=== PATIENT | female | born 1975 | race Caucasian/White ===

== ENCOUNTER 2021-06-19 18:58 | Outpatient (CLI) | payer BC | END 2021-06-19 18:59 | disposition home or self-care (01) | LOC: COV 18:58 | PROVIDERS: ATTEND Family Medicine | DX: R50.9 Fever, unspecified (principal); R05 Cough; M79.10 Myalgia, unspecified site; R07.0 Pain in throat; Z20.822 Contact with and (suspected) exposure to COVID-19 ==

== ENCOUNTER 2021-06-28 08:16 | Outpatient (CLI) | payer BC ==
--- NOTE | 2021-06-28 08:36 | XRAY Report ---
PROCEDURE: Chest 2 View X-Ray INDICATIONS: SOB TECHNIQUE: 2 view(s) of the chest. COMPARISON: None. FINDINGS: Surgical changes and devices: None. Lungs and pleura: No pleural effusions or pneumothorax. Lungs are clear. Mediastinum: Mediastinal contours are normal. Heart size is normal. Bones and chest wall: No suspicious bony abnormalities. Soft tissues appear unremarkable. IMPRESSION: No acute cardiopulmonary pathology. Reviewed by: Aron Hansen MD on 06/28/2021 8:35 AM PDT Approved by: Aron Hansen MD on 06/28/2021 8:35 AM PDT Station ID: [id number]
[2021-06-28 14:54] LABS: BASOPHILS # (AUTO) 0.1 10^3/uL (0.0-0.1); BASOPHILS % (AUTO) 1.3 %; EOSINOPHILS # (AUTO) 0.2 10^3/uL (0.0-0.7); EOSINOPHILS % (AUTO) 4.4 %; HCT - HEMATOCRIT 41.4 % (37.0-47.0); LYMPHOCYTES # (AUTO) 1.4 10^3/uL (1.5-3.5); MEAN CORPUSCULAR HEMOGLOBIN 34.4 pg (27.0-31.0); MEAN CORPUSCULAR HGB CONC 33.8 g/dL (32.0-36.0); MEAN CORPUSCULAR VOLUME 101.7 fL (81.0-99.0); MEAN PLATELET VOLUME 10.2 fL (7.9-10.8); MONOCYTES # (AUTO) 0.5 10^3/uL (0.0-1.0); MONOCYTES % (AUTO) 11.8 %; NEUTROPHILS # (AUTO) 2.4 10^3/uL (1.5-6.6); NEUTROPHILS % (AUTO) 52.3 %; PLT - PLATELET COUNT 262 10^3/uL (130-450); RED BLOOD COUNT 4.07 10^6/uL (4.20-5.40); RED CELL DISTRIBUTION WIDTH 12.2 % (12.0-15.0); WHITE BLOOD COUNT 4.6 x10^3/uL (4.8-10.8)
[2021-06-28 15:16] LABS: ALBUMIN 4.5 g/dL (3.2-5.5); ALBUMIN/GLOBULIN RATIO 1.4 (1.0-2.2); BILIRUBIN,TOTAL 1.2 mg/dL (0.2-1.0); CALCIUM 9.1 mg/dL (8.5-10.3); CREATININE 0.7 mg/dL (0.4-1.0); CRP - C-REACTIVE PROTEIN 2.8 mg/dL (0-1.0); MAGNESIUM 2.1 mg/dL (1.7-2.8); TOTAL PROTEIN 7.7 g/dL (6.7-8.2)
[2021-06-28 15:25] LABS: THYROID STIMULATING HORMONE 2.41 uIU/mL (0.34-5.60)
== END 2021-06-28 23:59 | disposition home or self-care (01) ==
LOC: DI.S 08:16
PROVIDERS: ATTEND Physician Assistant Medical
DX: R06.02 Shortness of breath (principal); T50.B95A Adverse effect of other viral vaccines, initial encounter; R00.2 Palpitations
CPT/HCPCS: 36415; 80053; 83735; 84443; 85025; 86140

== ENCOUNTER 2021-10-24 03:14 | Emergency (ER) | payer BC ==
[2021-10-24] MEDS ORDERED: ONDANSETRON 4 MG/2 ML VIAL IVP STA (03:43)
[2021-10-24] MEDS ORDERED: MORPHINE 10 MG/ML VIAL IVP STA (03:43)
[2021-10-24] MEDS ORDERED: SODIUM CHLORIDE 0.9% 1,000 ML IV STA (03:43)
--- NOTE | 2021-10-24 03:48 | ED Physician Documentation ---
History of Present Illness - Stated complaint Stated Complaint: R SIDE PX - Chief complaint Chief Complaint: Abd Pain - History obtained from History obtained from: Patient - Additonal information Additional information: 46yF with no pertinent pmh, PSH hysterectomy and R oopherectomy for pain/AUB, p/w sudden onset severe pain waking her from sleep just FIRESETTER, waxing and waning, intermittent, a/w nausea but no vomiting. patient states she had a couple of alcoholic drinks last night for her birthday and went to sleep feeling normal, then woke with pain. sharp, nonradiating, RLQ pain, worse with movement. has not tried urinating yet. denies vaginal bleeding, vomit, diarrhea, fever. Review of Systems Ten Systems: 10 systems reviewed and negative Constitutional: denies: Fever, Chills Respiratory: denies: Dyspnea GI: reports: Abdominal Swelling, Nausea. 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 DESK MANAGER: Tubal ligation, Hysterectomy, Oophrectomy - Present Medications Home Medications: Ambulatory Orders Medication Instructions Recorded Confirmed Nitrofurantoin [Macrobid] 100 mg PO BID #10 tab 10/24/21 Sennosides/Docusate Sodium 1 each PO QDAC PRN #30 tablet 10/24/21 [Senna-Docusate Sodium Tablet] Venlafaxine HCl [Effexor Xr] 150 mg PO DAILY 10/24/21 10/24/21 hydrOXYzine HCL [Hydroxyzine HCl] 25 mg PO Q8HR PRN 10/24/21 10/24/21 polyethylene glycoL 3350 [Miralax] 17 gm PO DAILY PRN #30 packet 10/24/21 - Allergies Allergies/Adverse Reactions: Allergies Allergy/AdvReac Type Severity Reaction Status Date / Time No Known Drug Allergies Allergy Verified 10/24/21 03:28 - Social History Does the pt smoke?: No Smoking Status: Never smoker Does the pt drink ETOH?: Yes ETOH Use: Beer Does the pt have substance abuse?: No - Immunizations Immunizations are current?: Yes PD ED PE NORMAL - Vitals Vital signs reviewed: Yes - General General: Alert and oriented X 3, Well developed/nourished, Other (moderate distress, curled up in bed on right side, in apparent pain) - HEENT HEENT: Atraumatic, PERRL, EOMI - Neck Neck: Supple, no meningeal sign - Cardiac Cardiac: Other (tachycardic rate, regular rhythm) - Respiratory Respiratory: No respiratory distress, Clear bilaterally - Abdomen Abdomen: Other (RLQ and suprapubic region ttp) - Back Back: No CVA TTP - Derm Derm: Normal color, Warm and dry - Extremities Extremities: No deformity - Neuro Neuro: Alert and oriented X 3 - Psych Psych: Normal mood, Normal affect Results - Vitals Vitals: Vital Signs - 24 hr 10/24/21 10/24/21 10/24/21 03:26 04:07 05:18 Temperature 35.9 C L 36.3 C L Heart Rate 110 H 88 85 Respiratory 22 19 18 Rate Blood Pressure 147/102 H 111/68 117/76 O2 Saturation 97 96 95 Oxygen O2 Source Room air - Labs Labs: Laboratory Tests 10/24/21 10/24/21 10/24/21 03:31 03:31 03:56 WBC 5.6 RBC 4.24 Hgb 14.8 Hct 41.4 MCV 97.6 MCH 34.9 H MCHC 35.7 RDW 11.9 L Plt Count 285 MPV 10.0 Neut # (Auto) 2.5 Lymph # (Auto) 2.5 Collin # (Auto) 0.4 Eos # (Auto) 0.1 Baso # (Auto) 0.1 Absolute Nucleated RBC 0.00 Nucleated RBC % 0.0 Sodium 141 Potassium 4.0 Chloride 103 Carbon Dioxide 23 Anion Gap 15.0 H BUN 16 Creatinine 0.7 Estimated GFR (MDRD) 90 Glucose 113 H Calcium 9.2 Total Bilirubin 0.4 AST 24 ALT 24 Alkaline Phosphatase 84 Total Protein 7.9 Albumin 4.5 Globulin 3.4 Albumin/Globulin Ratio 1.3 Lipase 56 H Urine Color YELLOW Urine Clarity CLEAR Urine pH 5.0 Ur Specific Bryan 1.025 Urine Protein NEGATIVE Urine Glucose (UA) NEGATIVE Urine Ketones 15 H Urine Occult Blood NEGATIVE Urine Nitrite NEGATIVE Urine Bilirubin NEGATIVE Urine Urobilinogen 0.2 (NORMAL) Ur Leukocyte Esterase TRACE H Urine RBC 0-5 Urine WBC 0-3 Ur Squamous Epith Cells FEW Squamous Urine Bacteria Rare Ur Microscopic Review INDICATED Urine Culture Comments INDICATED PD MEDICAL DECISION MAKING - ED course ED course: 46yF p/w RLQ pain concerning for kidney stone versus appendicitis versus ovarian torsion vs UTI. Torsion less likely given R oopherectomy however she could have L ovary migrating over to the right. will obtain CT imaging, treat symptomatically and reevaluate. Patient feeling much better now, pain has subsided and nausea resolved. d/w her that she is severely constipated. patient had small hard BM yesterday. will place on stool regimen. also with possible uti on u/a. discussed strict return precautions. plan to f/u with pmd. Departure - Departure Disposition: Home, Self Care Clinical Impression: Constipation, Nausea, UTI (urinary tract infection) Condition: Good Instructions: ED UTI Cystitis Female, ED Constipation Prescriptions: Nitrofurantoin [Macrobid] 100 mg PO BID #10 tab polyethylene glycoL 3350 [Miralax] 17 gm PO DAILY PRN #30 packet PRN Reason: Constipation Sennosides/Docusate Sodium [Senna-Docusate Sodium Tablet] 1 each PO QDAC PRN #30 tablet PRN Reason: Constipation Comments: You were seen in the emergency department for abdominal pain which appears to be due to constipation. It could also be related to UTI, since your urine had some white blood cells in it. We will treat with a mild antibiotic for now and will call you if it needs adjusting. Please follow up with your primary doctor in regards to your constipation. return to the ed for any new or worsening symptoms or other concerns.
[2021-10-24 03:51] LABS: BASOPHILS # (AUTO) 0.1 10^3/uL (0.0-0.1); BASOPHILS % (AUTO) 1.1 %; EOSINOPHILS # (AUTO) 0.1 10^3/uL (0.0-0.7); EOSINOPHILS % (AUTO) 2.3 %; HCT - HEMATOCRIT 41.4 % (37.0-47.0); HGB - HEMOGLOBIN 14.8 g/dL (12.0-16.0); LYMPHOCYTES # (AUTO) 2.5 10^3/uL (1.5-3.5); LYMPHOCYTES % (AUTO) 45.1 %; MEAN CORPUSCULAR HEMOGLOBIN 34.9 pg (27.0-31.0); MEAN CORPUSCULAR HGB CONC 35.7 g/dL (32.0-36.0); MEAN CORPUSCULAR VOLUME 97.6 fL (81.0-99.0); MONOCYTES # (AUTO) 0.4 10^3/uL (0.0-1.0); MONOCYTES % (AUTO) 7.5 %; NEUTROPHILS # (AUTO) 2.5 10^3/uL (1.5-6.6); NEUTROPHILS % (AUTO) 43.6 %; PLT - PLATELET COUNT 285 10^3/uL (130-450); RED BLOOD COUNT 4.24 10^6/uL (4.20-5.40); RED CELL DISTRIBUTION WIDTH 11.9 % (12.0-15.0); WHITE BLOOD COUNT 5.6 x10^3/uL (4.8-10.8)
[2021-10-24 04:00] LABS: ALBUMIN 4.5 g/dL (3.2-5.5); ALBUMIN/GLOBULIN RATIO 1.3 (1.0-2.2); BILIRUBIN,TOTAL 0.4 mg/dL (0.2-1.0); CALCIUM 9.2 mg/dL (8.5-10.3); CREATININE 0.7 mg/dL (0.4-1.0); TOTAL PROTEIN 7.9 g/dL (6.7-8.2)
[2021-10-24 04:02] LABS: BILIRUBIN,URINE NEGATIVE (NEGATIVE); GLUCOSE, URINE (UA) NEGATIVE (NEGATIVE); KETONES,URINE (UA) 15 mg/dL (NEGATIVE); LEUKOCYTE ESTERASE, URINE TRACE (NEGATIVE); NITRITE,URINE NEGATIVE (NEGATIVE); OCCULT BLOOD,URINE NEGATIVE (NEGATIVE); PROTEIN,URINE NEGATIVE (NEGATIVE); UROBILINOGEN,URINE 0.2 (NORMAL) E.U./dL (NORMAL)
[2021-10-24 04:05] LABS: CLARITY,URINE CLEAR (CLEAR)
[2021-10-24 04:07] LABS: BACTERIA,URINE Rare /HPF (None Seen); RBC,URINE 0-5 /HPF (0-5); SQUAMOUS EPITHELIAL CELL,UR FEW Squamous (<= Few); WBC,URINE 0-3 /HPF (0-5)
[2021-10-24] MEDS ORDERED: IOVERSOL 320 100 ML VIAL IVP ONE ×2 (04:23→04:53)
[2021-10-24] MEDS ORDERED: MORPHINE 2 MG/ML CARPUJECT IVP STA (05:22)
[2021-10-24 06:05] VITALS: BP 121/75
--- NOTE | 2021-10-24 07:31 | CT Report ---
PROCEDURE: Abdomen/Pelvis W INDICATIONS: severe RLQ pain waking her from sleep CONTRAST: IV CONTRAST: Optiray 320 ml: 100 PO CONTRAST: *NO PO CONTRAST TECHNIQUE: After the administration of intravenous contrast, 5 mm thick sections acquired from the diaphragms to the symphysis. 5 mm thick coronal and sagittal reformats were acquired. For radiation dose reducti on, the following was used: automated exposure control, adjustment of mA and/or kV according to tayla ent size. COMPARISON: None. FINDINGS: Image quality: Excellent. ABDOMEN: Lung bases: There is mild dependent atelectasis bilaterally. Heart size is normal. Solid organs: Evaluation of the liver demonstrates no focal hepatic lesions. Gallbladder appears with in normal limits without calcified gallstones. Biliary system is non dilated. The spleen is normal i n size. Pancreas enhances normally without peripancreatic fat stranding or fluid collections. No adr enal nodules. Kidneys demonstrate no hydronephrosis. Peritoneum and bowel: Bowel loops demonstrate normal wall thickness and caliber. The appendix is no rmal in appearance. There is a moderate amount of colonic stool throughout the colon. No free fluid o r air. Nodes and vessels: No retroperitoneal or mesenteric adenopathy by size criteria. Aorta and inferior vena cava are normal in size. Miscellaneous: No ventral hernias. PELVIS: Genitourinary: Bladder wall thickness is normal. Miscellaneous: No inguinal hernias or adenopathy. Bones: No suspicious bony lesions. No vertebral body compression fractures. IMPRESSION: 1. No evidence of acute appendicitis. 2. No evidence of obstructive uropathy. 3. Moderate amount of colonic stool throughout the colon may reflect constipation. No bowel obstructi on. Reviewed by: Otis Husain MD on 10/24/2021 7:29 AM PST Approved by: Otis Husain MD on 10/24/2021 7:29 AM PST Station ID: [id number]
== END 2021-10-24 06:15 | disposition home or self-care (01) ==
LOC: ED 03:14
DX: K59.00 Constipation, unspecified (principal); N39.0 Urinary tract infection, site not specified
CPT/HCPCS: 36415; 74177; 80053; 81001; 83690; 85025; 87086; 96374; 96375; 96376; 99284; Q9967; 81003

== ENCOUNTER 2022-02-12 10:23 | Outpatient (CLI) | payer BC | END 2022-02-12 10:24 | disposition EMS.NT | LOC: EMS 10:23 | DX: R05.9 Cough, unspecified (principal); J02.9 Acute pharyngitis, unspecified; R13.10 Dysphagia, unspecified ==

== ENCOUNTER 2022-02-12 11:00 | Emergency (ER) | payer BC ==
[2022-02-12] MEDS ORDERED: DEXAMETHASONE 10 MG/ML VIAL PO STA (11:41)
[2022-02-12] MEDS ORDERED: CHERRY SYRUP 10 ML UDC PO ONE (11:41)
[2022-02-12] MEDS ORDERED: IBUPROFEN 100 MG/5 ML UDC PO STA (11:41)
[2022-02-12] MEDS ORDERED: HYDROmorphone 1 MG/ML CARPUJECT IM STA (11:45)
--- NOTE | 2022-02-12 11:46 | ED Physician Documentation ---
History of Present Illness - Stated complaint Stated Complaint: SOA,TROUBLE SWALLOW,PX IN THROAT - Chief complaint Chief Complaint: Resp - Additonal information Additional information: 46-year-old female presents emergency department for evaluation of a sore throat. She reports that she began having myalgias chills sore throat 3 days ago. That evening at home she tested positive for COVID-19. She states that she cannot swallow and she does have some dysphonia. States it is difficult to breathe. She is vaccinated but not boosted for COVID-19. She did quit smoking about 5 years ago. Denies any history of heart or lung disorders however. 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 : None HEENT: None Psych: Depression, Anxiety Musculoskeletal: None Derm: None - Past Surgical History Past Surgical History: Yes /SEATER ASSEMBLER: Tubal ligation, Hysterectomy, Oophrectomy - Present Medications Home Medications: Ambulatory Orders Medication Instructions Recorded Confirmed Sennosides/Docusate Sodium 1 each PO QDAC PRN #30 tablet 10/24/21 02/12/22 [Senna-Docusate Sodium Tablet] Venlafaxine HCl [Effexor Xr] 150 mg PO DAILY 10/24/21 02/12/22 - Allergies Allergies/Adverse Reactions: Allergies Allergy/AdvReac Type Severity Reaction Status Date / Time No Known Drug Allergies Allergy Verified 10/24/21 03:28 - Social History Does the pt smoke?: No Smoking Status: Never smoker Does the pt drink ETOH?: Yes ETOH Use: Other Does the pt have substance abuse?: No - Immunizations Immunizations are current?: Yes PD ED PE EXPANDED - General General: Alert, No acute distress, Well developed/nourished - HEENT HEENT: Moist mucous membranes, Pharyngeal erythema (Mild posterior oropharynx erythema without tonsillar exudate. Uvula is midline. No soft palate asymmetry or swelling. Painful swallow.) - Neck Neck: Supple w/out meningeal sx, No tenderness (Mild tenderness with palpation of the anterior neck though no lymphadenopathy appreciated. Full range of motion. Positive dysphonia). No: Adenopathy - Cardiac Cardiac: Regular Rate, Radial strong equal, Pedal strong equal, Cap refill < 2 sec - Respiratory Respiratory: Clear to ausultation ananya. No: Distress, Labored - Abdomen Abdomen: Normal Bowel sounds. No: Tender to palpation - Neuro Neuro: Alert and Oriented X 3, Confused, Disoriented - GCS Eye Opening: Spontaneous Motor: Obeys Commands Verbal: Oriented Total: 15 Results - Vitals Vitals: Vital Signs - 24 hr 02/12/22 11:09 Temperature 37.8 C Heart Rate 90 Respiratory 24 Rate Blood Pressure 159/86 H O2 Saturation 96 Oxygen O2 Source Room air - Labs Labs: Laboratory Tests 02/12/22 11:50 Group A Strep Rapid Negative - Rads (name of study) cxr Radiology: Final report received (No acute cardiopulmonary process) PD MEDICAL DECISION MAKING - ED course Complexity details: reviewed results, re-evaluated patient, considered differential, d/w patient ED course: 46-year female presents emergency department for evaluation mostly of a sore throat. Symptoms began 3 days ago. Reports she tested positive for COVID-19 via rapid test at home. She is vaccinated though not boosted. We discussed the option of outpatient antiviral therapy but patient does not want to wait in the emergency department for COVID testing and is not interested in outpatient treatment. Her major concern is that of the pharyngitis. Rapid strep test is negative. She reports painful swallow but has unremarkable cardiopulmonary auscultation. Good air entry and no hypoxia. She prefers to spit but is able to phonate and swallow normally though painful. Here in the emergency department she was given a one-time dose of Decadron to help with pain as well as IM Dilaudid. She was also administered 600 mg of children's ibuprofen in elixir form which she was able to tolerate. On reevaluation her pain is better. I have encouraged her to frequently use ibuprofen or children's elixir. Emergent return precautions were discussed for worsening symptoms. Departure - Departure Disposition: 01 Home, Self Care Clinical Impression: Pharyngitis Qualifiers: Pharyngitis/tonsillitis etiology: unspecified etiology Qualified Code(s): J02.9 - Acute pharyngitis, unspecified Condition: Stable Record reviewed to determine appropriate education?: Yes Instructions: ED Pharyngitis Viral Comments: Melissa you were seen today in the emergency department for evaluation of your sore throat. This coincided with testing positive for COVID-19 a few days ago. Your rapid strep testing is negative. Here in the emergency department we did give you a one-time dose of Decadron which should help with pain inflammation and swelling over the next 48 to 72 hours. In general I recommend that you take a children's elixir ibuprofen or Tylenol for pain. You can take 600 mg of ibuprofen every 6 hours or 500 mg of Tylenol every 4-6 hours. Take frequent sips of liquids to make sure that you stay hydrated. I would expect your symptoms to be getting better over the next 3 to 4 days. If suddenly worsening or not improving as you would expect and please return immediately to the ER for a second evaluation.
--- NOTE | 2022-02-12 11:47 | XRAY Report ---
PROCEDURE: Chest 1 View X-Ray INDICATIONS: SHORTNESS OF AIR WITH COUGH TECHNIQUE: One view of the chest was acquired. COMPARISON: 06/28/2021 FINDINGS: Surgical changes and devices: None. Lungs and pleura: No pleural effusions or pneumothorax. Lungs are clear. Mediastinum: Mediastinal contours appear normal. Heart size is normal. Bones and chest wall: No suspicious bony lesions. Overlying soft tissues appear unremarkable. IMPRESSION: No acute cardiopulmonary disease. Reviewed by: Thais Marks MD on 02/12/2022 11:45 AM PDT Approved by: Thais Marks MD on 02/12/2022 11:45 AM PDT Station ID: [id number]
[2022-02-12 12:12] LABS: RAPID STREP SCREEN Negative (Negative)
[2022-02-12 12:37] VITALS: BP 126/76
== END 2022-02-12 12:42 | disposition home or self-care (01) ==
LOC: ED 11:00
DX: U07.1 COVID-19 (principal); J02.9 Acute pharyngitis, unspecified
CPT/HCPCS: 71045; 87070; 87430; 96372; 99283; 99284; A9270; J1170

== ENCOUNTER 2022-02-25 15:39 | Outpatient (CLI) | payer BC ==
[2022-02-25 17:55] LABS: BASOPHILS % (AUTO) 0.5 %; EOSINOPHILS # (AUTO) 0.1 10^3/uL (0.0-0.7); EOSINOPHILS % (AUTO) 1.2 %; HCT - HEMATOCRIT 38.8 % (37.0-47.0); HGB - HEMOGLOBIN 13.4 g/dL (12.0-16.0); LYMPHOCYTES # (AUTO) 1.9 10^3/uL (1.5-3.5); LYMPHOCYTES % (AUTO) 28.7 %; MEAN CORPUSCULAR HEMOGLOBIN 33.4 pg (27.0-31.0); MEAN CORPUSCULAR HGB CONC 34.5 g/dL (32.0-36.0); MEAN CORPUSCULAR VOLUME 96.8 fL (81.0-99.0); MONOCYTES # (AUTO) 0.4 10^3/uL (0.0-1.0); NEUTROPHILS # (AUTO) 4.2 10^3/uL (1.5-6.6); NEUTROPHILS % (AUTO) 63.1 %; PLT - PLATELET COUNT 331 10^3/uL (130-450); RED BLOOD COUNT 4.01 10^6/uL (4.20-5.40); RED CELL DISTRIBUTION WIDTH 12.3 % (12.0-15.0); WHITE BLOOD COUNT 6.7 x10^3/uL (4.8-10.8)
[2022-02-25 18:20] LABS: ALBUMIN 4.4 g/dL (3.2-5.5); ALBUMIN/GLOBULIN RATIO 1.5 (1.0-2.2); ALKALINE PHOSPHATASE 92 IU/L (42-121); ALT ALANINE AMINOTRANSFERASE 24 IU/L (10-60); AST ASPARTATE AMINOTRANSFERASE 18 IU/L (10-42); BILIRUBIN,TOTAL 0.9 mg/dL (0.2-1.0); BUN - BLOOD UREA NITROGEN 16 mg/dL (6-20); CALCIUM 9.4 mg/dL (8.5-10.3); CARBON DIOXIDE - CO2 26 mmol/L (21-32); CHLORIDE 106 mmol/L (101-111); CHOLESTEROL 228 mg/dL; CREATININE 0.8 mg/dL (0.4-1.0); GFR - MDRD 77 (>89); GLUCOSE 101 mg/dL (70-100); HDL CHOLESTEROL 57 mg/dL; LDL CHOLESTEROL,CALCULATED 154 mg/dL; LDL/HDL RATIO 2.7 (<4.4); POTASSIUM 4.2 mmol/L (3.5-5.0); SODIUM 141 mmol/L (135-145); TOTAL PROTEIN 7.4 g/dL (6.7-8.2); TRIGLYCERIDES 87 mg/dL; VLDL CHOLESTEROL 17 mg/dL
== END 2022-02-25 15:40 | disposition home or self-care (01) ==
LOC: LAB.N 15:39
PROVIDERS: ATTEND Physician Assistant
DX: Z13.29 Encounter for screening for other suspected endocrine disorder (principal); Z13.220 Encounter for screening for lipoid disorders
CPT/HCPCS: 36415; 80053; 80061; 82306; 83721; 84443; 85025

== ENCOUNTER 2022-04-15 15:00 | Outpatient (CLI) | payer BC ==
--- NOTE | 2022-04-15 16:55 | XRAY Report ---
PROCEDURE: Wrist 4 View LT INDICATIONS: L WRIST PX TECHNIQUE: 4 views of the wrist were acquired. COMPARISON: None FINDINGS: Bones: No fractures or dislocations. No suspicious bony lesions. Mild osteoarthritic changes are s een at scaphotrapezial joint. Scaphoid view: Scaphoid is intact. No evidence of osteonecrosis. Soft tissues: No suspicious soft tissue calcifications. IMPRESSION: Mild scaphotrapezial joint osteoarthritis. No fracture or dislocation. No evidence of osteonecrosis. Reviewed by: Aron Hansen MD on 04/15/2022 4:54 PM PDT Approved by: Aron Hansen MD on 04/15/2022 4:54 PM PDT Station ID: [id number]
== END 2022-04-15 15:01 | disposition home or self-care (01) ==
LOC: DI.N 15:00
PROVIDERS: ATTEND Physician Assistant
DX: M19.032 Primary osteoarthritis, left wrist (principal)

== ENCOUNTER 2022-07-03 14:41 | Outpatient (CLI) | payer BC ==
--- NOTE | 2022-07-10 12:51 | Mammography Report ---
BILATERAL DIGITAL SCREENING MAMMOGRAM 3D/2D: 07/03/2022 CLINICAL: Routine screening. Comparison is made to exam dated: 05/24/2016 mammogram - [facility]. There are scattered areas of fibroglandular density in both breasts (category b / 25%-50% glandular t issue). No significant masses, calcifications, or other findings are seen in either breast. There has been no significant interval change. IMPRESSION: NEGATIVE There is no mammographic evidence of malignancy. A 1 year screening mammogram is recommended. Based on the Tyrer Cuzick model (a risk assessment model) the patients lifetime risk is 6.1% and her 10 year risk is 1.1%. According to the ACR, ACS, and NCCN guidelines, an annual breast MRI exam huber g with mammogram is recommended if the patients lifetime risk is 20% or greater. This exam was interpreted at Station ID: [id number]. NOTE: For mammograms, a report in lay terms will be sent to the patient. Approximately 15% of breast malignancies will not be visualized mammographically. In the management of a palpable breast mass, a negative mammogram must not discourage biopsy of a clinically suspicious lesion. Electronically Signed By: Thais ruff/mary:07/09/2022 11:40:15 ACR BI-RADS Category 1: Negative [id number] PARENCHYMAL PATTERN: (A) - The breast(s) demonstrate(s) scattered fibroglandular densities. BI-RADS CATEGORY: (1) - 1 RECOMMENDATION: (ANNUAL) - Recommend routine annual screening mammography. [id number] 1 year screening LATERALITY: (B)
== END 2022-07-03 14:42 | disposition home or self-care (01) ==
LOC: DI.N 14:41
PROVIDERS: ATTEND Physician Assistant
DX: Z12.31 Encounter for screening mammogram for malignant neoplasm of breast (principal)

== ENCOUNTER 2024-01-14 12:15 | Outpatient (CLI) | payer OTHER ==
[2024-01-14 17:45] LABS: BASOPHILS # (AUTO) 0.1 10^3/uL (0.0-0.1); BASOPHILS % (AUTO) 1.4 %; EOSINOPHILS # (AUTO) 0.1 10^3/uL (0.0-0.7); EOSINOPHILS % (AUTO) 1.8 %; HCT - HEMATOCRIT 38.2 % (37.0-47.0); HGB - HEMOGLOBIN 13.2 g/dL (12.0-16.0); LYMPHOCYTES # (AUTO) 1.7 10^3/uL (1.5-3.5); LYMPHOCYTES % (AUTO) 32.9 %; MEAN CORPUSCULAR HEMOGLOBIN 34.6 pg (27.0-31.0); MEAN CORPUSCULAR HGB CONC 34.6 g/dL (32.0-36.0); MEAN CORPUSCULAR VOLUME 100.3 fL (81.0-99.0); MEAN PLATELET VOLUME 10.7 fL (7.9-10.8); MONOCYTES # (AUTO) 0.3 10^3/uL (0.0-1.0); MONOCYTES % (AUTO) 6.2 %; NEUTROPHILS # (AUTO) 2.9 10^3/uL (1.5-6.6); NEUTROPHILS % (AUTO) 57.1 %; PLT - PLATELET COUNT 279 10^3/uL (130-450); RED BLOOD COUNT 3.81 10^6/uL (4.20-5.40); RED CELL DISTRIBUTION WIDTH 12.8 % (12.0-15.0); WHITE BLOOD COUNT 5.1 x10^3/uL (4.8-10.8)
[2024-01-14 17:54] LABS: ALBUMIN 4.5 g/dL (3.2-5.5); ALKALINE PHOSPHATASE 78 IU/L (42-121); ALT ALANINE AMINOTRANSFERASE 25 IU/L (10-60); AST ASPARTATE AMINOTRANSFERASE 21 IU/L (10-42); BILIRUBIN,TOTAL 0.7 mg/dL (0.2-1.0); BUN - BLOOD UREA NITROGEN 12 mg/dL (6-20); CALCIUM 9.3 mg/dL (8.5-10.3); CARBON DIOXIDE - CO2 29 mmol/L (21-32); CHLORIDE 106 mmol/L (101-111); CHOL/HDL RATIO 4.5 (<4.4); CHOLESTEROL 207 mg/dL; CREATININE 0.8 mg/dL (0.6-1.3); GFR - MDRD 77 (>89); GLUCOSE 103 mg/dL (74-104); HDL CHOLESTEROL 46 mg/dL; LDL CHOLESTEROL,CALCULATED 121 mg/dL; LDL/HDL RATIO 2.6 (<4.4); POTASSIUM 4.5 mmol/L (3.5-4.5); SODIUM 139 mmol/L (135-145); TOTAL PROTEIN 6.7 g/dL (6.4-8.9); TRIGLYCERIDES 201 mg/dL (48-352); VLDL CHOLESTEROL 40 mg/dL
[2024-01-14 18:11] LABS: THYROID STIMULATING HORMONE 1.11 uIU/mL (0.34-5.60)
== END 2024-01-14 12:16 | disposition home or self-care (01) ==
LOC: LAB.N 12:15
PROVIDERS: ATTEND Physician Assistant
DX: E55.9 Vitamin D deficiency, unspecified (principal); Z13.9 Encounter for screening, unspecified
CPT/HCPCS: 36415; 80053; 80061; 82306; 83721; 84443; 85025